=== PATIENT | female | born 1990 | race Caucasian/White ===

== ENCOUNTER 2019-01-16 10:32 | Emergency (ER) | payer MEDICARE, MEDICAID ==
[~2019-01-16] VITALS: Ht 154.9 cm; Wt 56.7 kg
[2019-01-16 10:56] VITALS: BP 101/71
[2019-01-16] MEDS ORDERED: lamoTRIgine 100 MG TAB PO ONE (11:15)
== END 2019-01-16 12:10 | disposition home or self-care (01) ==
LOC: ER 10:32
DX: G40.909 Epilepsy, unspecified, not intractable, without status epilepticus (principal); Z76.0 Encounter for issue of repeat prescription